=== PATIENT | female | born 1965 | race Caucasian/White ===

== ENCOUNTER 2018-01-03 21:07 | Emergency (ER) | payer MEDICAID ==
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
[2018-01-03 21:42] VITALS: RESP 18
[2018-01-03 22:15] VITALS: BP 126/86; PULSE 78; TEMP 97.5; O2SAT 92
== END 2018-01-03 22:17 ==
LOC: EEVIPCON 21:07
DX: S09.90XA Unspecified injury of head, initial encounter (principal); F10.920 Alcohol use, unspecified with intoxication, uncomplicated; W01.198A Fall on same level from slipping, tripping and stumbling with subsequent striking against other object, initial encounter